=== PATIENT | male | born 1940 | race Caucasian/White ===

== ENCOUNTER 2021-01-24 20:54 | Inpatient (IN) ==
[2021-01-25] MEDS ORDERED: ACETAMINOPHEN 325 MG TABLET PO PRN (03:40)
[2021-01-25] MEDS ORDERED: hydrALAZINE 20 MG/1 ML VIAL IV PRN (03:40)
[2021-01-25] MEDS ORDERED: GLUCAGON 1 MG VIAL IM PRN (03:40)
[2021-01-25] MEDS ORDERED: ONDANSETRON 4 MG/2 ML VIAL IV PRN (03:40)
[2021-01-25] MEDS ORDERED: DEXTROSE 50% 25 GM/50 ML VIAL IV PRN (03:40)
[2021-01-25] MEDS ORDERED: DOCUSATE SODIUM 100 MG CAPSULE PO PRN (03:40)
[2021-01-25] MEDS ORDERED: BUTALBITAL/ACETAMIN/CAFFEINE 50-325-40 MG TABLET PO PRN (03:51)
[2021-01-25] MEDS: ENOXAPARIN 40 MG/0.4 ML SYRINGE SUBCUT SCH (05:00)
[2021-01-25 05:26] LABS: Basophils % 0.2 % (0.0-0.8); Eosinophils # 0.1 10*3/uL (0.0-0.87); Eosinophils % 1.4 % (0.00-10.9); Hematocrit 45.5 VOL% (42.0-52.0); Hemoglobin 14.9 GM/DL (14.0-18.0); Immature Granulocytes % 0.3 %; Immature Granulocytes Absolute 0.03 #; Lymphocytes % 32.1 % (21.2-54.2); Mean Corpuscular HGB Conc 32.7 GM/DL (32-36); Mean Corpuscular Volume 88.7 FL (87-102); Mean Platelet Volume 10.4 FL (9.6-12.0); Monocytes % 6.4 % (1.7-12.7); Neutrophils % 59.6 % (38.7-73.9); Platelet Count 194 T/CUMM (130-400); Red Blood Count 5.13 MC/CUMM (3.8-5.5); Red Cell Distribution Width 13.2 % (9.3-17.3); White Blood Count 9.2 T/CUMM (4-12)
[2021-01-25 05:43] LABS: PT Patient Result 10.9 SECS (9.8-11.9); Partial Thromboplastin Time 26.6 SECS (23.9-33.8)
[2021-01-25 06:00] LABS: Albumin 3.4 G/DL (3.4-5.0); Bilirubin,Total 0.7 MG/DL (0.2-1.0); Calcium 9.1 MG/DL (8.5-10.1); Osmolality,Calculated 283.5 MOS/KG (273-304); Potassium 3.7 MMOL/L (3.5-5.1); Risk Ratio 4.29; Thyroid Stimulating Hormone 4.56 uIU/ml (0.358-3.74); Total Protein 7.1 G/DL (6.4-8.2); VLDL CHOLESTEROL 47.6 MG/DL
[2021-01-25] MEDS: VERAPAMIL SR 180 MG TABLET PO SCH (09:02)
[2021-01-25] MEDS: MULTIVITAMIN (CENTRUM) TABLET PO SCH (09:02)
[2021-01-25] MEDS: TAMSULOSIN 0.4 MG CAPSULE PO SCH (09:02)
[2021-01-25] MEDS: PANTOPRAZOLE 40 MG TABLET PO SCH (09:02)
[2021-01-25] MEDS: ASPIRIN EC 325 MG TABLET PO SCH (09:03)
[2021-01-25] MEDS: INSULIN LISPRO 100 UNIT/ML SUBCUT SCH ×4 (09:21→20:58)
[2021-01-26] MEDS: ENOXAPARIN 40 MG/0.4 ML SYRINGE SUBCUT SCH (05:19)
[2021-01-26 05:56] LABS: Basophils % 0.4 % (0.0-0.8); Eosinophils # 0.2 10*3/uL (0.0-0.87); Eosinophils % 2.7 % (0.00-10.9); Hematocrit 43.7 VOL% (42.0-52.0); Hemoglobin 14.2 GM/DL (14.0-18.0); Immature Granulocytes Absolute 0.07 #; Lymphocytes # 2.1 10*3/uL (1.4-4.0); Lymphocytes % 29.9 % (21.2-54.2); Mean Corpuscular HGB Conc 32.5 GM/DL (32-36); Mean Corpuscular Volume 88.5 FL (87-102); Mean Platelet Volume 10.2 FL (9.6-12.0); Monocytes % 7.3 % (1.7-12.7); Neutrophils % 58.7 % (38.7-73.9); Platelet Count 173 T/CUMM (130-400); Red Blood Count 4.94 MC/CUMM (3.8-5.5); Red Cell Distribution Width 13.3 % (9.3-17.3); White Blood Count 7.1 T/CUMM (4-12)
[2021-01-26 06:11] LABS: Osmolality,Calculated 282.7 MOS/KG (273-304); Potassium 4.1 MMOL/L (3.5-5.1)
[2021-01-26] MEDS: ASPIRIN EC 325 MG TABLET PO SCH (08:31)
[2021-01-26] MEDS: PANTOPRAZOLE 40 MG TABLET PO SCH (08:31)
[2021-01-26] MEDS: MULTIVITAMIN (CENTRUM) TABLET PO SCH (08:31)
[2021-01-26] MEDS: VERAPAMIL SR 180 MG TABLET PO SCH (08:31)
[2021-01-26] MEDS: TAMSULOSIN 0.4 MG CAPSULE PO SCH (08:31)
[2021-01-26] MEDS: INSULIN LISPRO 100 UNIT/ML SUBCUT SCH (08:37)
[2021-01-26] MEDS ORDERED: CLOPIDOGREL 75 MG TABLET PO SCH (09:00)
[2021-01-26 11:37] VITALS: BP 163/77
[2021-01-26] MEDS ORDERED: SIMVASTATIN 80 MG TABLET PO SCH (21:00)
== END 2021-01-26 11:40 | DRG 65 ==
LOC: N.4E → SUATTDRO 01-25 01:09
PROVIDERS: ADMIT Internal Medicine; ATTEND Internal Medicine